=== PATIENT | female | born 1945 | race Caucasian/White ===

== ENCOUNTER 2025-09-04 09:35 | Outpatient (REF) | payer MEDICARE, SELFPAY ==
[2025-09-04 14:11] LABS: MANUAL DIFF FLAG NO
[2025-09-04 14:15] LABS: Hematocrit 41.5 % (37.0-47.0); Hemoglobin 12.9 g/dl (12.0-16.0); Imm Gran Abs Auto 0.03 X10*3/uL (0.00-0.03); Imm Gran Pct Auto 0.4 % (0.0-0.4); Lymphocytes Absolute Auto 1.8 X10*3/uL (1.2-4.9); Mean Corpuscular HGB Conc 31.1 g/dl (31.0-35.0); Mean Corpuscular Hemoglobin 27.4 pg (27.0-33.0); Mean Corpuscular Volume 88.3 fL (80.0-98.0); NRBC Abs Auto 0.000 X10*3/uL (0.0-0.012); NRBC Pct Auto 0.0 /100WBC (0.0-0.2); Platelet Count 261 X10*3/uL (160-400); Red Blood Count 4.70 X10*6/uL (4.20-5.50); White Blood Count 6.9 X10*3/uL (4.8-10.8)
== END 2025-09-04 09:36 | disposition home or self-care (01) ==
LOC: HO.WFDLDS 09:35
PROVIDERS: PCP Internal Medicine; Visit Provider Internal Medicine
DX: R35.89 Other polyuria (principal); E78.5 Hyperlipidemia, unspecified; Z13.0 Encounter for screening for diseases of the blood and blood-forming organs and certain disorders involving the immune mechanism; Z76.89 Persons encountering health services in other specified circumstances; Z13.1 Encounter for screening for diabetes mellitus; Z85.3 Personal history of malignant neoplasm of breast
CPT/HCPCS: 36415; 83036; 84443; 85025; 96127; 99202

== ENCOUNTER 2025-09-04 09:35 | Outpatient (AMB) | payer MEDICARE, SELFPAY ==
--- NOTE | 2025-09-04 09:37 | MHC.PC.OV ---
Vital Signs 09/04/25 09:41 Height 5 ft 4.5 in Weight 188 lb 8 oz BMI 31.9 BP 122/60 Blood Pressure Location Rt brachial Position Sitting Respiration 14 Pulse 71 Pulse Source Pulse Oximeter Temp 97.6 F Temp Source Oral Pulse Oximetry (%) 96 Oxygen Delivery Method Room Air Intake Visit Reasons: CPE Intake Note: New patient visit Addictions Counselor Assistant Required: No Medication List - Last Reconciled 09/04/25 by Renata Brand MD amlodipine 2.5 mg PO DAILY anastrozole 1 mg PO DAILY atorvastatin 10 mg PO DAILY brinzolamide 1% 1 drp ophthalmic-Right BID cholecalciferol (vitamin D3) (Vitamin D3) 25 mcg PO DAILY clotrimazole 1% appl topical BID fenofibrate micronized 134 mg PO QAM timolol maleate 0.5% 1 drp ophthalmic (eye) BID valsartan 40 mg PO DAILY Tobacco use date assessed: 09/04/25 Fall risk assessment: No Falls in past year Last assessed Fall Risk: 09/04/25 Dental Screening Dental Screen Date: 09/04/25 Did you have a dental visit in the last 12 months?: Yes Did you have a dental problem in the last 6 months where you did not have access to dental care?: No Was dental information given to patient?: Patient has dentist HPI HPI Comments History of Present Illness Details 79 year old female with a past medical history of breast cancer, htn, hld, presenting to establish care & for CPE CV-on amlodipine, valsartan, atorvastatin, fenofibrate. Blood pressure is well controlled Breast cancer-follows with Dr Francisco. Dr Booker. Treated 06/2022-12/2023 MSK: trigger finger Labs 06/2025. Normal CMP. Tchol 161 LDL 87 Follows with ophtho[facility] and [facility]. 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 HEENT: Denies changes in vision and hearing. RESPIRATORY: Denies SOB and cough. CV: Denies palpitations and CP GI: Denies abdominal pain, nausea, vomiting and diarrhea. : Denies dysuria and urinary frequency. MSK: Denies new myalgia and joint pain. SKIN: Denies rash and pruritus. NEUROLOGICAL: Denies headache PSYCHIATRIC: Denies recent changes in mood. PHYSICAL EXAM: GENERAL: Alert and oriented x 3. NAD EYES: EOMI. Anicteric. HENT: Moist mucous membranes. No scleral icterus. No cervical lymphadenopathy. LUNGS: Clear to auscultation bilaterally. CARDIOVASCULAR: Regular rate and rhythm. No murmur. No JVD. ABDOMEN: Soft, non-tender +bs EXTREMITIES: No edema. Non-tender. SKIN: No rashes or lesions. Warm. NEUROLOGIC: No focal neurological deficits. CN II-XII grossly intact PSYCHIATRIC: Cooperative. Appropriate mood and affect [facility] Social History Housing: House Patient Tobacco Use Status: Former Tobacco user Cigarette Packs Per Day: 0.5 Years Smoked: 20 e-Cigarette/Vaping Use: Never Used Second Hand Smoke Exposure: No service: No Current occupational status: retired Cognitive needs: No Hearing needs: Yes (hearing aids) Vision needs: Yes (glasses) Questionnaire PHQ-9 Over the last 2 weeks, how often have you been bothered by any of the following problems? 1. Little interest or pleasure in doing things: not at all 2. Feeling down, depressed, or hopeless: not at all 3. Trouble falling or staying asleep, or sleeping too much: not at all 4. Feeling tired or having little energy: not at all 5. Poor appetite or overeating: not at all 6. Feeling bad about yourself - or that you are a failure or have let yourself or your family down: not at all 7. Trouble concentrating on things, such as reading the newspaper or watching television: not at all 8. Moving or speaking so slowly that other people could have noticed. Or the opposite - being so fidgety or restless that you have been moving around a lot more than usual: not at all 9. Thoughts that you would be better off or of hurting yourself in some way: not at all Total score: 0 Source: Developed by Drs. Jorgito Jimenez, Nida Larkin, Mane Rey and colleagues, with an educational leonel from [employer]. Thrive Questionnaire Date Thrive assessed: 09/01/25 I am a: Patient What is your living situation today?: I have a steady place to live Within the past 12 months, did the food you bought not last and you didn't have the money to get more?: Never true Within the past 12 months, did you worry whether your food would run out before you got money to buy more?: Never true Do you have trouble paying for medicines?: No Do you have trouble getting transportation to medical appointments?: No Do you have trouble paying your heating and electricity bill?: No Do you have trouble taking care of your child, family member or friend?: No Do you have trouble with day-to-day activities such as bathing, preparing meals, shopping, managing finances, etc.?: No Are you currently unemployed and looking for a job?: No Are you interested in more education?: No Please select the resources that you would like help with: None Currently or been in a relationship where the following occur: No concerns reported THRIVE Score: 0 AUDIT C Alcohol Use Questionnaire (AUDIT-C) 1. How often do you have a drink containing alcohol?: Monthly or less 2. How many drinks containing alcohol do you have on a typical day when you are drinking?: 1 or 2 3. How often do you have six or more drinks on one occasion?: Never Total Score: 1 ROLAN-7 AMB Questionnaire ROLAN-7 Feeling nervous, anxious, or on edge: 0 = Not at all Not being able to stop or control worryin = Not at all Worrying too much about different things: 0 = Not at all Trouble relaxin = Not at all Being so restless that it is hard to sit still: 0 = Not at all Becoming easily annoyed or irritable: 0 = Not at all Feeling afraid as if something awful might happen: 0 = Not at all Total ROLAN-7 score (0-4 normal; 5-9 mild; 10-14 moderate; 15-21 severe): 0 Source: Developed by Drs. Jorgito Jimenez, Nida Larkin, Mane Rey and colleagues, with an educational leonel from [employer]. Physical exam (Primary Care) Vital Signs: Last Vital Signs Temp 97.6 F 09/04/25 09:41 Pulse 71 09/04/25 09:41 Resp 14 09/04/25 09:41 BP 122/60 09/04/25 09:41 Pulse Ox 96 09/04/25 09:41 Oxygen Delivery Method Room Air 09/04/25 09:41 BMI result Body Mass Index 31.9 Tobacco/Smoking Status: Tobacco use Status Tobacco use date assessed 09/04/25 09/04/25 09:43 Patient Tobacco Use Status Former Tobacco user 09/04/25 09:43 e-Cigarette/Vaping Use Never Used 09/04/25 09:43 PHQ-9: PHQ-9 Score PHQ-9: Total score 0 09/04/25 10:13 Thrive Assessment: Date of Thrive Assessment Date Thrive assessed 09/01/25 09/04/25 09:38 Currently or been in a relationship where the following occur: No concerns reported Coding Level of Care Code New Pt Level 4 (22913) Complex EM visit Add On G2211 Diagnoses Establishing care with new doctor, encounter for Z76.89 Malignant neoplasm of female breast, unspecified estrogen receptor status, unspecified laterality, unspecified site of breast C50.919 Breast location: unspecified site of breast Estrogen receptor status: unspecified Patient sex: female Laterality: unspecified laterality Hyperlipidemia, unspecified hyperlipidemia type E78.5 Hyperlipidemia type: unspecified Assessment & Plan Assessment & Plan (1) Establishing care with new doctor, encounter for: Code(s): Z76.89 - Persons encountering health services in other specified circumstances (2) Breast cancer: Code(s): C50.919 - Malignant neoplasm of unspecified site of unspecified female breast Category: Medical Qualifiers: Breast location: unspecified site of breast Estrogen receptor status: unspecified Patient sex: female Laterality: unspecified laterality Qualified Code(s): C50.919 - Malignant neoplasm of unspecified site of unspecified female breast (3) Hyperlipidemia: Code(s): E78.5 - Hyperlipidemia, unspecified Category: Medical Qualifiers: Hyperlipidemia type: unspecified Qualified Code(s): E78.5 - Hyperlipidemia, unspecified Plan 79 year old female presenting to establish care Past medical, surgical,social reviewed htn stable Labs ordered Refills sent Orders: Orders TSH reflex Free T4 09/04/25 R35.89 - Other polyuria, Z13.0 - Encounter for screening for diseases of the blood and blood-forming organs and certain disorders involving the immune mechanism Hemoglobin A1c 09/04/25 R35.89 - Other polyuria, Z13.0 - Encounter for screening for diseases of the blood and blood-forming organs and certain disorders involving the immune mechanism Complete Blood Count Auto Diff 09/04/25 R35.89 - Other polyuria, Z13.0 - Encounter for screening for diseases of the blood and blood-forming organs and certain disorders involving the immune mechanism Medications: New timolol maleate 0.5% 1 drp ophthalmic (eye) BID 15 mL 3RF amlodipine 2.5 mg PO DAILY 90 tabs 3RF clotrimazole 1% 1 appl topical BID 90 grams 3RF
[2025-09-04 09:41] VITALS: BP 122/60; PULSE 71; RESP 14; TEMP 36.4; O2SAT 96; BMI 31.9
--- OUTSIDE RECORDS SUMMARY | 2025-09-04 10:58 | XMS_ITS ---
Author Name [facility] Organization Unknown Care Team Organization Name Specialty Phone Email Start Date End Da te [facility] Termed, PROVIDER Primary Care 09/05/202205/29
--- OUTSIDE RECORDS SUMMARY | 2025-09-04 10:58 | XMS_ITS | Encounter Summary ---
Author Organization [facility] Address [address] [place] [address] Care Team Providers Care Power Plant Operator Name Role Phone Seun Esparza DO Primary Care Provider [phone] Encounter Details Date Type Department Care Team Description 10/12/[address] [facility] On[facility] [address] [place] [address] [facility] Social History Tobacco Use Types Packs/Day Years Used Date Smoking Tobacco: Former Cigarettes 20 Smokeless Tobacco: Never Alcohol Use Standard Drinks/Week Comments Not Currently 0 (1 standard drink = 0.6 oz pur e alcohol) 5-6 drinks/year Sex and Gender Information Value Date Recorded Sex Assigned at Female 07/11/2022 4:08 PM EDT Gender Identity Not on file Sexual Orientation Not on file Job Start Date Occupation Industry Not on file Not on file Not on file COVID-19 Exposure Response Date Recorded In the last 10 days, have yo u been in contact with someone who was confirmed or suspected to have Coronavirus/COVID-19? No / Unsure 10/12/2022 10:20 AM EST documented as of this encounter Plan of Treatment Not on file documented as of this encounter Visit Diagnoses Not on filedocumented in this encounter Care Teams Power Plant Operator Relationship Specialty Start Date End Date Seun Esparza DO [address] [place] [id number] PCP - General Family Medicine 07/12/22 documented as of this encounter
--- OUTSIDE RECORDS SUMMARY | 2025-09-04 10:58 | XMS_ITS | Clinical Summary ---
Author Organization [facility] Address [address] [address] Phone Care Team Providers Care Lacemaker Name Role Phone Pcp, Unknown Primary Care Provider Unavailabl e Social History Tobacco Use Types Packs/Day Years Used Date Smoking Tobacco: Never Assessed Education Answer Date Recorded Are you interested in more education? Not on celine e 09/13/2023 Are you concerned about learning? Not on file 09/13/2023 No 09/13/2023 No 09/13/2023 Digital Access Answer Date Recorded No 09/13/2023 No 09/13/2023 Reliable internet access at home? Not on file 09/13/2023 Device with a working camera? Not on file Comments Unknown Sex and Gender Information Value Date Recorded Sex Assigned at Not on file Legal Sex Female 12:52 PM EST Gender Identity Not on file Sexual Orientation Not on file Plan of Treatment Health Maintenance Due Date Last Done Comments Adult Td,Tdap Booster 1944 LIPID PANEL 1944 DEPRESSION SCREENING 1956 SMOKING Hx and SMOKELESS TOB ACCO SCREENING 1957 PNEUMOCOCCAL VACCINES (50+ y ears) (1 of 1 - PCV) 1994 ZOSTER VACCINES (1 of 2) 1994 OSTEOPOROSIS SCREENING INITI AL (ONE-TIME) 2009 RSV VACCINE (1 - 1-dose 75+ series) 2019 INFLUENZA VACCINE (#1) 2025 COVID-19 VACCINE ( - 2024-2 6 season) 2025 HEPATITIS A VACCINES Aged Out No long er eligible based on patient's age to complete this topic HIB VACCINES Aged Out No longer eligi ble based on patient's age to complete this topic MENINGOCOCCAL VACCINES (ACWY) Aged Out No longer eligible based on patient's age to complete this topic MENINGOCOCCAL VACCINES (B) Aged Out N o longer eligible based on patient's age to complete this topic Medical Devices Not on file Insurance [employer] P[employer] BLUE REPLACEMENT [employer] P[employer] BLUE REPLACEMENT [employer] PPO BLUE REPLACEMENT [employer] BLUE REPLACEMENT [employer] BLUE REPLACEMENT Care Teams Lacemaker Relationship Specialty Start Date End Date Pcp, Unknown PCP - General 09/13/23 Additional Source Comments The information contained in this document represents components of the legal health record. It is not the complete legal health record.[facility]
--- OUTSIDE RECORDS SUMMARY | 2025-09-04 10:58 | XMS_ITS | Data Portability ---
Author Organization [place] - [facility], Allergy Address [address] [address] Care Team Providers Care Scientific Recruiter Name Role Phone ROSALEE SMITH Primary Care Provider [phone] Assessment Encounter Date Assessment Date Assessment LastModified by Organization Details LastModified Time 03/19/2024 03/19/2024 Audiogram shows essentially stable hearing, slight decline at 4 kHz, bilaterally, which was programmed into the hearing aids today. Poor audibility most likely a result of the cerushields that were occluded with wax; significant improvement after replacing them with new. Reviewed general care of hearing aids. Follow up as needed. [email or web address] Not available 03/19/2024 12:08:12 04/10/2024 04/10/2024 Recurrent Cerumen Impactions: Ears were meticulously cleaned bilaterally today with a curette and suction. The patient tolerated this well and will follow up for repeat debridement per routine. [email or web address] Not available 04/10/2024 09:05:39 12/29/2024 12/29/2024 Hearing devices were found to be generally free of debris. A listening test revealed that the devices were found to be in working order. The microphones were functioning without any noise or artifact. The sound bores were not occluded at this time. Patient's hearing is essentially stable. Given report that the patient is straining to hear, we increased overall gain by 1 click in both devices. Patient reported that speech is audible and comfortably loud. The output of the devices have been analyzed and fine-tuned using the [employer]ell[employer]an Gnarus Systemsit hearing aid analyzer at a previous visit. Reviewed with patient the importance of annual appointments to ensure that the devices are working to their best potential and to rule out any changes in hearing or need to reprogram the devices. Urgent visits can always be requested or the patient can also utilize our drop-off repair program. Recommend following up in one year for their annual hearing aid fitting, sooner if any problems arise. [email or web address] Not available 12/29/2024 14:46:13 Plan of Treatment Reminders Order Date Submit Date Provider Last Modified By Organization Details Last Modified Time Details Appointments Establish ed 30 2024 10:00A M PRATIK Hanson MD Not available Not available Not available Lab None recorded. Referral None recorded. Procedures None recorded. Surgeries None recorded. Imaging None recorded. Medication Orders clotrimaz ole-betam ethasone 1 %-0.05 % topical cream 2023 024 [facility] #[id number], [address] [place], [address], 04/10/2024 09:16:03 Patient TargetsNo targets recorded. Patient InstructionsNo instructions recorded. Reason for Referral None Reported. Results Created Date Observation Date Name Description Value Unit Range Abnormal Flag Note LastModifiedBy Organization Detail LastModifiedTime 06/18/20 24 01/12/2023 audio gram No observ ation record ed. Not Available 12/29 11:53:52 06/18/20 24 03/19/2024 audio gram No observ ation record ed. [email or web address] Not Available 12/29 11:53:40 12/31/19 25 audio gram No observ ation record ed. [email or web address] Not Available 2024 11:21:21 Result Notes None recorded. Problems Name Problem SNOMED Code Status Onset Date Resolution Date Notes Provider Name and Address Organization Details Recorded Time Impacted cerumen of bilateral ears 31274095734 53586 Active 2021 Impacted cerumen, bilateral ; Note: Date Diagnosed : 06/23/2022 9:52 AM (H61.23) Not Available [facility] 03:24:51 Acute eczematoi d otitis externa 87403326 Active 2021 Acute eczematoi d otitis externa, bilateral ; Note: Date Diagnosed : 06/23/2022 10:01 AM (H60.543) Not Available [facility] 4 03:24:51 Sensorine ural hearing loss of bilateral ears 459870954 Active 2022 Sensorine ural hearing loss, bilateral ; Note: Date Diagnosed : 01/12/2023 3:03 PM (H90.3) Not Available [facility] 4 03:24:51 Impacted cerumen in right ear 84899558643 83829 Active 2023 Deanne tavarez [place] - [facility] 4 09:03:18 Impacted cerumen in left ear 47752098197 91220 Active 2023 Deanne tavarez [place] - [facility] 4 09:03:18 Chronic eczema of external auditory canal 954802893 Active 2023 PRATIK CORDOBA MD [address] [facility],[place] [address], [place], [address] , [facility] - [facility] 4 09:06:18 Candidal otitis externa 54788726 Active 2023 PRATIK CORDOBA MD [address] [facility],[place] [address], [place], [address] , [facility] - [facility] 4 09:06:33 Chronic mycotic otitis externa 764486264 Active 2023 PRATIK CORDOBA MD 100 [facility],[place] [address], [place], [address] , [facility] - [facility] 4 09:06:33 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 Active 2023 PRATIK CORDOBA MD 100 [facility] [address], [place], [address] , [facility] - [facility] 4 09:06:33 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 Procedures Surgical History Date Name Laterality Status Provider Name and Address Organization Details Recorded Time 5 Cerumen removal with microscope bilateral completed PRATIK CORDOBA MD 100 [facility],[address], [address], [facility] - [facility] 01/16/2025 10:44:37 5 Air & Speech Audio - 47520 & 60361 completed Srini BERNABE 100 [facility],[address], [address], [facility] - [facility] 12/29/2024 14:45:12 4 Cerumen removal with microscope bilateral completed PRATIK CORDOBA MD 100 [facility],[address], [address], [facility] - [facility] 04/10/2024 09:06:01 4 Air only Audio - 20397 completed Srini BERNABE 100 [facility],[address], [address], [facility] - [facility] 03/19/2024 12:06:53 Imaging Results None recorded. Procedure Notes None recorded. Medical Equipment None Reported. Allergies Allergen ID Allergen Name Allergen Category Reaction Reaction Severity Criticality Documentation Date Start Date Code Code System Note Provider Name and Address Organization Details Recorded Time 432709 amoxicill in medicatio n other Not available Not available 03/11/2024 723 RxNorm React ion: Unkno wn; Not Available [facility] 4 01:23:41 Medications Name Sig Start Date Stop Date Status Note LastModified by Organization Details LastModified Time anastrozo le 1 mg tablet TAKE 1 TABLET BY MOUTH EVERY DAY active Not Available Not Available No t Available prednison e 10 mg tablet PLEASE SEE ATTACHED FOR DETAILED DIRECTIO NS active Not Available Not Available No t Available atorvasta tin 10 mg tablet TAKE 1 TABLET BY MOUTH EVERY DAY active Not Available Not Available No t Available fluconazo le 150 mg tablet TAKE ONE TABLET ONCE WEEKLY X4 WEEKS. MAY REPEAT REGIMEN IF SYMPTOMS RETURN. 04/10 completed Not Available Not Available Not Available clotrimaz ole-betam ethasone 1 %-0.05 % lotion Apply a small amount three times a day as directed 04/10 completed Medicati on ID: [id number] D uration Value: 14 Brand Name: clotrima zole-bet amethaso ne Send Method: E-Prescr ibed Sub s Allowed: subs OK Speci al Instruct ion: Apply with finger to ear canal skin. Me dication GenericN shoaib: clotrima zole-bet amethaso ne Medic ation ID: [id number] D uration Value: 14 Brand Name: clotrima zole-bet amethaso ne Send Method: E-Prescr ibed Sub s Allowed: subs OK Speci al Instruct ion: Apply with finger to ear canal skin. Me dication GenericN shoaib: clotrima zole-bet amethaso ne Not Available Not Available Not Available brinzolam lamar 1 % eye drops,ferdinand pension INSTILL 1 DROP INTO RIGHT EYE TWICE A DAY DIRECTED active Not Available Not Available No t Available amlodipin e 2.5 mg tablet TAKE 1 TABLET BY MOUTH 1 TIME EACH DAY. active Not Available Not Available No t Available fenofibra te micronize d 134 mg capsule TAKE 1 CAPSULE (134 MG TOTAL) BY MOUTH DAILY WITH BREAKFAS T active Not Available Not Available No t Available cefadroxi l 500 mg capsule TAKE 1 CAPSULE BY MOUTH ONCE. TAKE 1 CAP BY MOUTH 30 MINUTES PRIOR TO PROCEDUR E. active Not Available Not Available No t Available amlodipin e 10 mg tablet TAKE 1 TABLET BY MOUTH EVERY DAY active Not Available Not Available No t Available clotrimaz ole-betam ethasone 1 %-0.05 % topical cream APPLY TO THE SKIN OF THE AFFECTED EXTERNAL EAR CANAL WITH FINGERTI P 3 TIMES PER DAY FOR 2 WEEKS active Not Available Not Available No t Available losartan 25 mg tablet TAKE 1 TABLET BY MOUTH EVERY DAY active Not Available Not Available No t Available lisinopri l 30 mg tablet TAKE 1 TABLET BY MOUTH EVERY DAY active Not Available Not Available No t Available vitamin B complex tablet 1 tablet every day by oral route. 2023 active Not Available Not Available Not Avai lable lisinopri l 5 mg tablet TAKE 1 TABLET BY MOUTH DAILY. IN ADDITION TO 30 MG active Not Available Not Available No t Available gabapenti n 100 mg capsule TAKE 1 CAPSULE BY MOUTH EVERY DAY 12/23 completed Not Available Not Available Not Available methylpre dnisolone 4 mg tablets in a dose pack TAKE 6 TABLETS ON DAY 1 DIRECTED ON PACKAGE AND DECREASE BY 1 TAB EACH DAY FOR A TOTAL OF 6 DAYS 04/10 completed Not Available Not Available Not Available timolol maleate 0.5 % eye drops INSTILL 1 DROP INTO BOTH EYES TWICE A DAY DIRECTED active Not Available Not Available No t Available clotrimaz ole 1 % topical cream APPLY TO AFFECTED AREA TWICE A DAY active Not Available Not Available No t Available valsartan 40 mg tablet TAKE 1 TABLET BY MOUTH 1 TIME EACH DAY. active Not Available Not Available No t Available Vitamin D3 25 mcg (1,000 unit) tablet TAKE 1 TABLET (1,000 UNITS TOTAL) BY MOUTH DAILY active Not Available Not Available No t Available amlodipin e besylate (bulk) 100 % powder 2024 active Not Available Not Available Not Avai lable Vitamin D3 125 mcg (5,000 unit) tablet 2014 active Not Available Not Available Not Avai lable Vitals Date Recorded Body height Body mass index (BMI) Body weight Provider Name and Address Organization Details Last Updated DateTime 01/16/2025 163.83 cm 28.7 kg/m2 71274.7 g Ciarra Patricia [place] - [facility] 01/16/2025 10:05:49 Date Recorded Body height Body mass index (BMI) Body weight Provider Name and Address Organization Details Last Updated DateTime 04/10/2024 163.83 cm 28.7 kg/m2 99016.7 g Deanne Blandon [facility] 04/10/2024 09:04:05 Social History None recorded. Functional Status None recorded. Mental Status None recorded. Family History Nothing Reported. Medical History Condition Response Tonsil Infections N Emphysema N Glaucoma Y Depression N COPD N Nasal or Sinus Problems N Anesthesia Complications N Arthritis Y Hearing Loss Y Cancer Y Stroke N High Cholesterol Y Liver Disease N Headaches Y Fibromyalgia N Speech Delay N Kidney Disease N Allergies/Hayfever Y Heart Problems N Anxiety N Migraines N Thyroid Problems N Developmental Delay N Anemia N Immune System Disorder N Heart Attack ([place]) N Other Skin Condition N Diabetes N Rhinitis N Bleeding Disorder N Food Allergy N Hyperlipidemia N Dementia N Nasal polyps N Asthma N Sleep Disorder N GERD/Reflux N Hypertension N Gynecological HistoryNo gynecological history recorded. Obstetrics History GPAL:G 0 P 0 0 0 0 Past Encounters Encounter ID Performer Location Encounter Start Date Encounter Closed Date Diagnosis/Indication Diagnosis SNOMED-CT Code Diagnosis ICD10 Code Diagnosis IMO Codes Diagnosis Note [id number] Srini BERNABE [place] 100 [facility] [address] [place] [address] 03/19/2024 11:10:48 04/18/2024 08:41:34 Sensorineural hearing loss of bilateral ears 383790482 H90.3 [id number] PRATIK CORDOBA MD [facility] on [address] [place] [address] 04/10/2024 08:57:37 04/10/2024 09:23:40 Impacted cerumen of bilateral ears 1479286363 040042 H61.23 Chronic ec zema of external auditory canal 993157441 H60.8X9 Benign pos itional paroxysmal vertigo posterior canal 1383470198 H81.11 Keesha performed. I asked her to call if not improved and I will send for vestibular therapy [id number] Srini BERNABE [place] [address] [place], [place] [address] [address] [place] [address] 12/29/2024 13:48:23 12/30/2024 08:24:11 Sensorineural hearing loss of bilateral ears 742485932 H90.3 [id number] PRATIK CORDOBA MD [facility] on [address] [place] [address] 01/16/2025 09:46:12 01/16/2025 10:44:55 Impacted cerumen of bilateral ears 4252276306 477834 H61.23 Recurrent Cerumen Impactions : Ears were meticulous ly cleaned bilaterall y today with fine pics and suction. Patient is encouraged to avoid Q-tips in his ears relative to packing the wax in tighter. Yearly visits or as needed are recommende d. Diffuse ot itis externa 07712877 H60.313 No infection on exam today. She uses clotrimazo le as needed for itching. Health Concerns Section Related Observation LastModified by Organization Detai ls LastModified Time None Recorded Concern Status LastModified by Organization Details LastModified Time None Recorded Advance Directives Directive None Recorded Payers Insurance Date Sequence Insurance Name Policy Number Policy Hensley Covered Member ID Hensley Member ID Guarantor Name 01/16/2025 1 [facility]IC[place] P[place] BLUE (MEDICARE REPLACEMENT PPO) [id number] Felicita M Janina [id number] Felicita Roa Notes Date Note Type Note Provider Name and Address Organization Details Recorded Time 03/19/2024 text/html Here for annual visit, not hearing well, especially out of the right ear. LOUIS KELLEY, Srini 100 [facility],[place] [address], [place], [address], [place] - [facility] 03/19/2024 12:08:41 04/10/2024 text/html The patient presents for cerumen impaction. The patient denies other ear problems. PRATIK CORDOBA MD 100 [facility],[place] [address], [place], [address], [place] - [facility] 04/10/2024 09:16:01 12/29/2024 text/html Hearing Technolo gy HistoryReported by PatientReported status of current hearing technologyFor sound quality and programming settings, patient reportsthat they are satisfied with current settings and technology. For daily use, patient reportsconsistent use of technology. For communication and hearing challenges, patient reportshearing in noisy environments. For reported condition, patient reportsin working condition. Patient returned for their annual fitting of amplification to discuss their ongoing communication needs and progress with amplification. They reported a change in their hearing ability. They are struggling understanding someone within 3-4 feet in noise. They are not sure if they are inserting them properly. They report that their devices are in working order without defects. The devices are in warranty at this time. LOUIS KELLEY, Srini [address] [facility],[place] [address], [place], [address], [place] - [facility] 12/29/2024 14:47:12 01/16/2025 text/html The patient presents for cerumen impaction. The patient denies other ear problems. She has a history of recurrent otitis externa however she has had no recent trouble. She uses clotrimazole as needed. PRATIK CORDOBA MD [address] [place] [address], [address], [facility] - [facility] 01/16/2025 10:45:49 OBGyn Episode No OBEpisode recorded.
--- OUTSIDE RECORDS SUMMARY | 2025-09-04 10:58 | XMS_ITS | Clinical Summary ---
Author Organization [address] Address [address] [place] [address] Phone Care Team Providers Care Digital Media Designer Name Role Phone Renata Brand MD Primary Care Provider [phone] Allergies Active Allergy Reactions Criticality Noted Date Comments Amoxicillin 06/28/2022 Dizzy/ headache Fznsvtz-Uug-Axw Reductase Inhibitors 03/19/2014 Multiple side effects palpitations with simvistatin Medications brinzolamide (AZOPT) 1 % ophthalmic suspension INSTILL 1 DROP INTO RIGHT EYE TWICE A DAY DIRECTED 1 Active fluticasone propionate (FLONASE) 50 mcg/actuation nasal spray Apply 2 sprays into each nostril once daily 6 Active timolol (TIMOPTIC) 0.5 % ophthalmic solution 1 drop. Active cholecalciferol (VITAMIN D-3) 25 mcg (1,000 unit) tablet Take 1 tablet (1,000 Units total) by mouth 1 (one) time each day. 30 each 11 4 10/07/20 25 Active anastrozole (ARIMIDEX) 1 mg TAKE 1 TABLET BY MOUTH EVERY DAY 90 tablet 3 5 Active amLODIPine (NORVASC) 2.5 mg tablet Take 1 tablet (2.5 mg total) by mouth 1 (one) time each day. 90 each 1 5 Active clotrimazole (LOTRIMIN) 1 % cream Apply topically 2 (two) times a day. 30 g 5 Active atorvastatin (LIPITOR) 10 mg tablet Take 1 tablet (10 mg total) by mouth 1 (one) time each day. 90 each 1 5 Active valsartan (DIOVAN) 40 mg tablet TAKE 1 TABLET BY MOUTH 1 TIME EACH DAY. 90 tablet 1 5 Active fenofibrate micronized (LOFIBRA) 134 mg capsuleIndicatio ns:Pure hypercholesterol emia, unspecified TAKE 1 CAPSULE (134 MG TOTAL) BY MOUTH DAILY WITH BREAKFAST 90 capsule 5 Active Active Problems Problem Noted Date Diagnosed Date Renal mass 12/08/2024 Overview (12/08/2024): S/p cryoablation. We do not have records. They have been requested. Assessment & Plan (12/08/2024 2:08 PM EST): History of a exophytic right renal mass. Status post cryoablation. Records have been requested from urology. The imaging study was suspicious for renal cell carcinoma. Encounter for monitoring anastrozole therapy 07/2024 Primary hypertension 04/02/2023 Assessment & Plan (12/08/2024 2:08 PM EST): Her blood pressure is well-controlled in the office today. At home her systolic blood pressure seems to average in the 130s. No change to regimen today. She will continue on amlodipine and valsartan. Will follow renal function. Assessment & Plan (10/28/2024 12:16 PM EST): Her blood pressure is doing better with the addition of amlodipine. While it is somewhat elevated today, her home blood pressure readings are looking much better, and she had a particularly stressful morning because her neighbor last night. For now follow-up in 3 months is recommended. Invasive ductal carcinoma of breast, female, right (CMS/HCC V24, CMS/HCC V28) 09/28/2022 Glaucoma 10/03/2020 Vitamin D insufficiency 03/19/2014 Assessment & Plan (12/08/2024 2:08 PM EST): Vitamin D previously diminished. Patient is on vitamin D supplementation. Orders placed to follow labs. Orders: Thyroid stimulating hormone; Future Vitamin D 25 hydroxy; Future Comprehensive metabolic panel; Future Assessment & Plan (10/28/2024 12:16 PM EST): Recently had her vitamin D increase by her oncologist. Osteoporosis 12/26/2011 Overview (01/04/2024): On Fosamax in the past. BMD improved/normalized on meds 09/07/09; osteopenia 07/10; follow; T score -1.4; osteopenia 11/14 Tscore -1.6 hip, -0.6 in the spine; improved Osteopenia 07/19- T score hip -1.4, spine -.3 3.6% frax of hip Hyperlipidemia 02/14/2011 Overview (01/04/2024): Inc TG, inc LDL Assessment & Plan (12/08/2024 2:08 PM EST): Patient with previous history of hyperlipidemia. She is maintained on atorvastatin 10 mg. Will follow LFTs. Orders: Thyroid stimulating hormone; Future Vitamin D 25 hydroxy; Future Comprehensive metabolic panel; Future Overweight 02/14/2011 Resolved Problems Problem Noted Date Diagnosed Date Resolved Date Use of anastrozole 10/07/2024 4 Encounters Date Type Department Care Team Description 08/21/2025 9:00 AM EDT Office Visit [facility] Hematology Oncology [address] [place] [address] Alondra Booker DO Invasive ductal carcinoma of breast, female, right (CMS/HCC V24, CMS/HCC V28) (Primary Dx); Encounter for screening mammogram for malignant neoplasm of breast; Encounter for monitoring anastrozole therapy; Osteopenia after menopause from Last 3 Months Immunizations Immunization Administration Dates Next Due Influenza trivalent, 0.5mL ( Fluad) 65yo and older 08/04/2025 Pfizer SARS-CoV-2 COVID-19, mRNA, LNP-S, preservative free 07/27/2023,12/24/2020,12/02/2020 Pneumococcal conjugate 13 va lent (Prevnar 13, PCV13) 2mo and older 06/28/2015 Pneumococcal polysaccharide 23 valent (Pneumovax 23) 2yo and older 12/16/2009 RSV, bivalent, protein subun it RSVpreF, 0.5mL, Preservative Free (Arexvy) 50yo and older 07/27/2023 Zoster recombinant (Shingrix ) 19yo and older 05/18/2020,01/11/2020 Surgical History Surgery Date Site/Laterality Comments VITRECTOMY PROCEDURE:VITRECTOMY VARICOSE VEIN SURGERY PROCEDURE:VARICOSE VEIN SURGERY STEREOTACTIC CORE BIOPSY BREAST LUMPECTOMY Right 2 YRS OUT RT BREAST CA-LUMPECTOMY W RADIATION & CHEMO Medical History Medical History Date Comments Osteoporosis DX:Osteoporosis Breast cancer ([facility] V24, [facility] V28) DX:Breast cancer ([facility]) Family History Medical History Relation Name Comments Heart attack Father Coronary artery disease Mother Relation Name Status Comments Father Mother Social History Tobacco Use Types Packs/Day Years Used Date Smoking Tobacco: Former Smokeless Tobacco: Never Alcohol Use Standard Drinks/Week Comments Not Currently 0 (1 standard drink = 0.6 oz pur e alcohol) Housing Instability Answer Date Recorde d Are you worried that in the next 2 months you may not have stable housing? No 09/04/2024 Food Access & Nutrition Answer Date Rec orded Do you have access to a vari ety of food including fruits and vegetables? Yes 09/04/2024 Access to Healthcare Answer Date Record ed Within the last 3 months, ho w many times did you visit the emergency department for your medical care? 0 09/04/2024 Health Literacy Answer Date Recorded How often do you need to hav e someone help you when you read instructions, pamphlets, or other written material from your doctor or pharmacy? Never 09/04/2024 Caregiver: How often do you need to have someone help you when you read instructions, pamphlets, or other written material from your doctor or pharmacy? Not on file 09/04/2024 Transportation Answer Date Recorded Has the lack of transportati on kept you from meetings, work, or from getting things needed for daily living? No Has the lack of transportati on kept you from medical appointments or from getting medications? No 09/04/2024 Social Isolation Answer Date Recorded How often do you feel lonely or isolated from th ose around you? Never 09/04/2024 Food Risk Answer Date Recorded Within the past 12 months we worried whether our food would run out before we got money to buy more. Never true 09/04/2024 Within the past 12 months th e food we bought just didn't last and we didn't have money to get more. Never true 09/04/2024 Dependent Care Answer Date Recorded Do you need help finding or paying for care for your loved ones. For example, children's court magistrate or elderly care for an older adult? No 09/04/2024 Education Answer Date Recorded Do you think completing more education or training, like finishing a GED, going to college, or learning a trade, would be helpful for you? No 09/04/2024 Employment and Income Answer Date Recor ded During the last four weeks, have you been actively looking for work? No 09/04/2024 Living Situation Answer Date Recorded What is your living situation? Unrecognized valu e 09/04/2024 Comments No Sex and Gender Information Value Date Recorded Sex Assigned at Female 09/02/2024 9:37 AM EST Legal Sex Female 11:03 PM EST Gender Identity Female 09/02/2024 9:37 AM EST Sexual Orientation Straight 09/02/2024 9: 37 AM EST Obstetrics History Para Term AB IAB SAB Ectopic Multiple Livin g Live Births 1 1 1 1 Date Outcome GA Total Labor Labor/2nd/3rd Weight Sex Type Anes PTL Sola A1 A5 Name Clin Term Last Filed Vital Signs Vital Sign Reading Time Taken Comments Blood Pressure 170/79 08/21/2025 9:06 AM EDT Pulse 78 08/21/2025 9:06 AM EDT Temperature 36.6 C (97.9 F) 08/21/2025 9:06 AM EDT Respiratory Rate 16 04/07/2025 11:00 AM EDT Oxygen Saturation 92% 08/21/2025 9:06 AM EDT Inhaled Oxygen Concentration - - Weight 86.2 kg (190 lb) 08/21/2025 9:06 AM EDT Height 163.8 cm (5' 4.5 ) 08/21/2025 9:06 AM EDT Body Mass Index 32.11 08/21/2025 9:06 AM EDT Plan of Treatment Upcoming Encounters Date Type Department Care Team (Late st Contact Info) Description 10/06/2025 10:45 AM EST [facility]ointment [facility] [address] [phone] 10/07/2025 9:45 AM EST Office Visit Adult Medicine [facility] [address] [place] [phone] Jane Treadwell MD [address] [place] [address] 11/10/2025 9:15 AM EST Office Visit General [facility] - [place] [address] [facility] [address] [place] [phone] Renata Josue MD [address] [place] [phone] 02/19/2026 9:00 AM EDT Office Visit [facility] Hematology Oncology [address] [place] [phone] Alondra Booker DO [address] [place] [address] Health Maintenance Due Date Last Done Comments Medicare Annual Wellness Visit 10/07/2022 Social Influencers of Health Screening 09/04/2025 09/04/2024 Falls Risk Assessment 12/08/2025 12/08/2024 , 12/02/2024, 10/28/2024 COVID-19 Vaccine (9 - Pfizer risk season) 2026 08/04/2025, 07/31/2024, 07/27/2023, Additional history exists Hypertension/CHF/CAD Annual BMP Blood Test 07/16/2026 07/16/2025, 09/30/2024, 05/05/2024, Additional history exists Cholesterol Screening (Lipid Panel) 07/16/2030 07/16/2025, 08/13/2024, 07/28/2024, Additional history exists DTaP,Tdap,and Td Vaccines (3 - Td or Tdap) 09/28/2032 09/28/2022, 09/11/2012, 11/07/2004 Osteoporosis Screening (Bone Density Screening) 01/22/2035 01/22/2025, 01/21/2024, 01/16/2023, Additional history exists Pneumococcal Vaccine: 50+ Years Completed 06/28/2015, 12/16/2009 Zoster Vaccines Completed 05/18/2020, 01/11/2020 RSV Immunization Adult Patients Completed 07/27/2023 Depression Screening Completed 12/01/2024 Influenza Vaccine Completed 08/04/2025, , 07/10/2023, Additional history exists HIB Vaccines Aged Out No longer eligi ble based on patient's age to complete this topic HPV Vaccines Aged Out No longer eligi ble based on patient's age to complete this topic Hepatitis A Vaccines Aged Out No long er eligible based on patient's age to complete this topic Hepatitis B Vaccines Aged Out No long er eligible based on patient's age to complete this topic IPV Vaccines Aged Out No longer eligi ble based on patient's age to complete this topic MMR Vaccines Aged Out No longer eligi ble based on patient's age to complete this topic Meningococcal ACWY Vaccine Aged Out N o longer eligible based on patient's age to complete this topic Meningococcal B Vaccine Aged Out No l onger eligible based on patient's age to complete this topic RSV Immunization Patients Under 20 months Aged Out No longer eligible based on patient's age to complete this topic Varicella Vaccines Aged Out No longer eligible based on patient's age to complete this topic Procedures Procedure Name Priority Date/Time Associated Diagnosis Comments VITAMIN D 25 HYDROXY Routine 07/16/2025 8:55 AM EDT Vitamin D insufficiency Hyperlipidemia, unspecified hyperlipidemia type COMPREHENSIVE METABOLIC PANEL Routine 07/16/2025 8:55 AM EDT Vitamin D insufficiency Hyperlipidemia, unspecified hyperlipidemia type LIPID PANEL WITH REFLEX TO DIRECT LDL Routine 07/16/2025 8:55 AM EDT Encounter for screening for cardiovascular disorders THYROID STIMULATING HORMONE WITH REFLEX TO FREE T4 AND FREE T3 Routine 07/16/2025 8:55 AM EDT Primary hypertension Pure hypercholesterolemia Invasive ductal carcinoma of breast, female, right ([facility] V24, [facility] V28) Encounter for screening for cardiovascular disorders BD BONE DENSITY DXA AXIAL SKELETON Routine 01/22/2025 11:14 AM EDT Invasive ductal carcinoma of breast, female, right ([facility] V24, [facility] V28) Encounter for monitoring anastrozole therapy Osteopenia, unspecified location from Last 3 Months or Most Recently Relevant to Health Maintenance Results * Thyroid stimulating hormone with reflex to free t4 and free t3 (07/16/2025 8:55 AM EDT) TSH 2.10 0.40 - 4.00 mcIU/mL LAB CHEMISTRY METHOD 07/16/2025 12:29 PM EDT [facility] Blood Venous blood specimen / Unknown Venipuncture / Unknown 07/16/2025 8:55 AM EDT 07/16/2025 8:55 AM EDT us Shamir Reza [employer]PER[employer] LAB BLOOD ORDERABLES Final R esult [facility] [address] [place] [address], [place] [phone] * Lipid panel with reflex to direct LDL (07/16/2025 8:55 AM EDT) Cholesterol 161 0 - 200 mg/dL LAB CHEMISTRY METHOD 07/16/2025 10:56 AM EDT [facility] Triglycerides 110 0 - 150 mg/dL LAB CHEMISTRY METHOD 07/16/2025 10:56 AM EDT [facility] HDL 52 >=40 mg/dL LAB CHEMISTRY METHOD 07/16/2025 10:56 AM EDT [facility] LDL Calculated 87 0 - 100 mg/dL LAB CHEMISTRY METHOD 07/16/2025 10:56 AM EDT [facility] Comment:Estimated LDL Calcul ated using equation: Total cholesterol - HDL cholesterol - (Triglycerides/5) VLDL Cholesterol Hasmukh 22 mg/dL LAB CHEMISTRY METHOD 07/16/2025 10:56 AM EDT [facility] Non HDL Chol. (LDL+VLDL) 109 <145 mg/dL LAB CHEMISTRY METHOD 07/16/2025 10:56 AM EDT [facility] Chol/HDL Ratio 3.1 0.0 - 4.4 LAB CHEMISTRY METHOD 07/16/2025 10:56 AM EDT [facility] Blood Venous blood specimen / Unknown Venipuncture / Unknown 07/16/2025 8:55 AM EDT 07/16/2025 8:55 AM EDT Shamir Reza [employer]CR[employer] SUPER[employer]OR LAB BLOOD ORDERABLES Final R esult Performing Organization Address City/[facility]/ZIP Co de Phone Number [facility] [address] [place] [address], [place] [phone] * Vitamin D 25 hydroxy (07/16/2025 8:55 AM EDT) Vit D, 25-Hydroxy 36.0 30.0 - 80.0 ng/mL LAB CHEMISTRY METHOD 07/16/2025 12:29 PM EDT [facility] Blood Venous blood specimen / Unknown Venipuncture / Unknown 07/16/2025 8:55 AM EDT 07/16/2025 8:55 AM EDT [facility] LAB BLOOD ORDERABLES Fin al Result Performing Organization Address City/[facility]/ZIP Co de Phone Number [facility] [address] [place] [address], [place] [phone] * (ABNORMAL) Comprehensive metabolic panel (07/16/2025 8:55 AM EDT) [facility] Signature Sodium 141 133 - 145 mmol/L LAB CHEMISTRY METHOD 07/16/2025 10:53 AM [facility] Potassium 4.5 3.5 - 5.5 mmol/L LAB CHEMISTRY METHOD 07/16/2025 10:53 AM [facility] Chloride 106 96 - 110 mmol/L LAB CHEMISTRY METHOD 07/16/2025 10:53 AM [facility] CO2 30 21 - 32 mmol/L LAB CHEMISTRY METHOD 07/16/2025 10:53 AM [facility] Anion Gap 5 3 - 11 LAB CHEMISTRY METHOD 07/16/2025 10:53 AM [facility] Glucose 109(H) 70 - 100 mg/dL LAB CHEMISTRY METHOD 07/16/2025 10:53 AM [facility] BUN 19 5 - 25 mg/dL LAB CHEMISTRY METHOD 07/16/2025 10:53 AM [facility] Creatinine 0.57 0.50 - 1.10 mg/dL LAB CHEMISTRY METHOD 07/16/2025 10:53 AM [facility] eGFR 92 >=60 mL/min/1. 73m2 LAB CHEMISTRY METHOD 07/16/2025 10:53 AM [facility] Comment:Calculation based on the Chronic Kidney Disease Epidemiology Collaboration (CKD-EPI) equation refit without adjustment for race. BUN/Creatinine Ratio 33.3 LAB CHEMISTRY METHOD 07/16/2025 10:53 AM [facility] Calcium 9.3 8.5 - 10.5 mg/dL LAB CHEMISTRY METHOD 07/16/2025 10:53 AM [facility] AST (SGOT) 11 10 - 42 unit/L LAB CHEMISTRY METHOD 07/16/2025 10:53 AM [facility] ALT (SGPT) 24 10 - 60 unit/L LAB CHEMISTRY METHOD 07/16/2025 10:53 AM EDT [facility] Alkaline Phosphatase 85 42 - 121 unit/L LAB CHEMISTRY METHOD 07/16/2025 10:53 AM EDT [facility] Total Protein 6.7 6.0 - 8.0 g/dL LAB CHEMISTRY METHOD 07/16/2025 10:53 AM EDT [facility] Albumin 4.0 3.2 - 5.0 g/dL LAB CHEMISTRY METHOD 07/16/2025 10:53 AM EDT [facility] Total Bilirubin 0.7 0.0 - 1.4 mg/dL LAB CHEMISTRY METHOD 07/16/2025 10:53 AM EDT [facility] Blood Venous blood specimen / Unknown Venipuncture / Unknown 07/16/2025 8:55 AM EDT 07/16/2025 8:55 AM EDT us [place] [facility] LAB BLOOD ORDERABLES Fin al Result [facility] [address] [place] [address], * BD Bone Density DXA Axial Skeleton (01/22/2025 11:14 AM EDT) Anatomical Region Laterality Modality Wrist, Hip, L-spine Bone Densito metry 01/22/2025 11:1 9 AM EDT Impressions 01/22/2025 11:21 AM EDT 1. Osteopenia. There has been a decrease of 0.4% in bone mineral density in the lumbar spine since the prior examination of 01/25/2023. There has been a decrease of 6.1% in bone mineral density in the right femur and no change in bone mineral density in the left femur. 2. FRAX analysis yields a 10-year probability of major osteoporotic fracture of 18.2% and a 10-year probability of hip fracture of 6.0%. Code 98597 -------- FINAL REPORT -------- Dictated By: Chace Jose Dictated Date: 01/22/2025 11:19 ET Assigned Physician: Chace Jose Reviewed and Electronically Signed By: Chace Jose Signed Date: 01/22/2025 11:21 ET Workstation ID: [id number] Transcribed By: Self Edit Transcribed Date: 01/22/2025 11:19 ET Narrative 01/22/2025 11:21 AM EDT HISTORY: The patient is an 79-year-old postmenopausal female with clinical concern for metabolic bone disease. FINDINGS: Dual energy x-ray absorptiometry of the lumbar spine and femurs is performed. The mean bone mineral density at L2-4 is 1.147 gm/cm2 which is 96% of that of young normals and 109% of that of age matched controls. This yields a T-score of -0.4 and a Z-score of 0.8 and there is therefore no evidence of osteoporosis or osteopenia here. The mean bone mineral density of the femurs bilaterally is 0.898 gm/cm2 which is 89% of that of young normals and 111% of that of age matched controls. This yields a T-score of -0.9 and a Z-score of 0.7 and there is therefore no evidence of osteoporosis or osteopenia here. However, the T-score of the right femoral neck is -2.4 and that of the left femoral neck is -2.4 which is diagnostic of osteopenia. Procedure Note Chace Jose MD - 01/22/2025 HISTORY: The patient is an 79-year-old postmenopausal female withclinical concern for metabolic bone disease. FINDINGS: Dual energy x-ray absorptiometry of the lumbar spine and femursis performed. The mean bone mineral density at L2-4 is 1.147 gm/cm2 whichis 96% of that of young normals and 109% of that of age matched controls.This yields a T-score of -0.4 and a Z-score of 0.8 and there is thereforeno evidence of osteoporosis or osteopenia here. The mean bone mineral density of the femurs bilaterally is 0.898 gm/ap0odaip is 89% of that of young normals and 111% of that of age matchedcontrols. This yields a T-score of -0.9 and a Z-score of 0.7 and there istherefore no evidence of osteoporosis or osteopenia here. However, theT-score of the right femoral neck is -2.4 and that of the left femoralneck is -2.4 which is diagnostic of osteopenia. IMPRESSION: 1. Osteopenia. There has been a decrease of 0.4% in bone mineral densityin the lumbar spine since the prior examination of 01/25/2023. There hasbeen a decrease of 6.1% in bone mineral density in the right femur and nochange in bone mineral density in the left femur. 2. FRAX analysis yields a 10-year probability of major osteoporoticfracture of 18.2% and a 10-year probability of hip fracture of 6.0%. Code 78773 -------- FINAL REPORT -------- Dictated By: Chace Jose Dictated Date: 01/22/2025 11:19 ET Assigned Physician: Chace Jose Reviewed and Electronically Signed By: Chace Jose Signed Date: 01/22/2025 11:21 ET Workstation ID: [id number] Transcribed By: Self Edit Transcribed Date: 01/22/2025 11:19 ET us Alondra Booker DO IMG DXA PROCEDURES Fi nal Result from Last 3 Months or Most Recently Relevant to Health Maintenance Insurance [employer] [place] MEDIC[place] ADVANTAGE Care Teams Digital Media Designer Relationship Specialty Start Date End Date Renata Brand MD [address] [place] [address] [address] [place] [id number] PCP - General Internal Medicine 08/21/25
--- OUTSIDE RECORDS SUMMARY | 2025-09-04 10:58 | XMS_ITS | Clinical Summary ---
Author Organization [facility] Address [address] [place] [address] Care Team Providers Care Breaker Up Machine Operator Name Role Phone Seun Esparza DO Primary Care Provider [phone] Allergies Active Allergy Reactions Criticality Noted Date Comments Amoxicillin 08/16/2022 Brimonidine 06/24/2024 Other reaction(s): ORBITAL REDNESS AND SWELLING Medications Medication Sig Dispensed Refills Start Date End Date Status clotrimazole (LOTRIMIN) 1 % cream Apply topically 2 (two) times a day. 0 Active atorvastatin (LIPITOR) tablet 10 mg Take 1 tablet (10 mg total) by mouth every evening. 0 Active fenofibrate micronized (LOFIBRA) 134 MG capsule Take 1 capsule (134 mg total) by mouth every morning before breakfast. 0 Active brinzolamide (AZOPT) 1 % ophthalmic suspension 1 drop 3 (three) times a day. 0 Active timolol (TIMOPTIC) 0.5 % ophthalmic solution 1 drop 2 (two) times a day. 0 Active Calcium 500 MG tablet Take 600 mg by mouth. 0 Active fluticasone (FLONASE) 50 MCG/ACT nasal spray spray/apply 1 spray in each nostril daily. 0 Active vitamin D3 (cholecalciferol) 25 MCG (1000 UT) tablet Take 1 tablet (25 mcg total) by mouth daily. 0 Active ondansetron (ZOFRAN) 8 MG tablet Take 1 tablet (8 mg total) by mouth every 8 (eight) hours as needed for nausea. 20 tablet 0 10/26/2022 Active lisinopril (PRINIVIL,ZESTRIL) tablet 20 mg Take 1.5 tablets (30 mg total) by mouth daily. 0 Active lidocaine-prilocaine (EMLA) cream Apply topically as needed. 30 g 0 11/15/2022 Active fluconazole (DIFLUCAN) 150 MG tablet Take 1 tablet (150 mg total) by mouth once. 0 Active anastrozole (ARIMIDEX) 1 MG tablet Take 1 tablet (1 mg total) by mouth daily 90 tablet 3 02/19/2024 Active Active Problems Problem Noted Date Diagnosed Date Malignant neoplasm of right breast in female, estrogen receptor positive 06/24/2024 Osteopenia 06/24/2024 Sensorineural hearing loss (SNHL) of both ears 0 01/12/2023 06/24/2024 Overview: Sensorineural hearing loss, bilateral; Note: Date Diagnosed: 01/12/2023 3:03 PM (H90.3) Note: Date Diagnosed: 01/12/2023 3:03 PM (H90.3) Sensorineural hearing loss, bilateral; Note: Date Diagnosed: 01/12/2023 3:03 PM (H90.3) Elevated blood-pressure read ing without diagnosis of hypertension 02/08/2022 06/24/2024 Glaucoma 10/03/2020 06/24/2024 Hyperlipidemia 02/14/2011 06/24/2024 Overview: Inc TG, inc LDL Overweight 02/14/2011 06/24/2024 Family History Medical History Relation Name Comments Heart attack Father Coronary artery disease Mother Relation Name Status Comments Father Mother Social History Tobacco Use Types Packs/Day Years Used Date Smoking Tobacco: Former Cigarettes 20 Smokeless Tobacco: Never Tobacco Cessation:Counseling Given: Not Answered Alcohol Use Standard Drinks/Week Comments Not Currently 0 (1 standard drink = 0.6 oz pur e alcohol) 5-6 drinks/year Sex and Gender Information Value Date Recorded Sex Assigned at Female 07/11/2022 4:08 PM EDT Gender Identity Not on file Sexual Orientation Not on file Job Start Date Occupation Industry Not on file Not on file Not on file Last Filed Vital Signs Vital Sign Reading Time Taken Comments Blood Pressure 165/80 06/24/2024 10:06 AM EDT Pulse 70 06/24/2024 10:06 AM EDT Temperature 36.8 C (98.3 F) 06/24/2024 9:28 AM EDT Respiratory Rate 18 10/02/2023 9:01 AM EST Oxygen Saturation 97% 06/24/2024 9:28 AM EDT Inhaled Oxygen Concentration - - Weight 85.5 kg (188 lb 9.6 oz) 06/24/2024 9:28 A M EDT Height 157.5 cm (5' 2 ) 06/24/2024 9:28 AM EDT Body Mass Index 34.5 06/24/2024 9:28 AM EDT Plan of Treatment Health Maintenance Due Date Last Done Comments Depression Screening 1957 BMI Counseling 1962 Preventative Health Evaluation 1962 Fall Risk Assessment 2009 Osteoporosis Screening (DEXA Scan) 2009 RSV Adult > 60+ Yrs or (1 - 1-dose 75+ series) 2019 DTap / Tdap / Td (2 - Td or Tdap) 09/11/2022 09/11/2012, 11/07/2004 COVID-19 Vaccine ( season) 2025 07/27/2023, 07/12/2022, 02/02/2022, Additional history exists Influenza Vaccine (#1) 2025 , 07/12/2022, 07/17/2021, Additional history exists Pneumococcal Vaccine Completed 06/28/2015, 12/16/19 10 Shingrix-Zoster Vaccine Completed 05/18/2020, 01/10 Hepatitis B Vaccines Aged Out No long er eligible based on patient's age to complete this topic RSV Ped < 20 months Aged Out No longe r eligible based on patient's age to complete this topic Care Teams Breaker Up Machine Operator Relationship Specialty Start Date End Date Seun Esparza DO [address] [place] [id number] PCP - General Family Medicine 07/12/22
--- OUTSIDE RECORDS SUMMARY | 2025-09-04 10:58 | XMS_ITS ---
Author Organization [facility] Address [address] [place] [address] Care Team Providers Care Cook Chef Name Role Phone Seun Esparza DO Primary Care Provider [phone] Active Problems Problem Noted Date Diagnosed Date [...] Inc TG, inc LDL Overweight 02/14/2011 06/24/2024 Current Oncology Plans No current plan information found. Past Plans ONCOLOGY TREATMENT Plan Name Start Date Discontinue Date Treatment Medications Discontinue Reason Plan Provider Cycles [facility] BCN OP TRASTUZUMAB (WITH LOAD), [id number], X1 YEAR (1.5/1 HR) 3/23/20 23 06/24/2024 albuterol (PROVENTIL)diphenhydr AMINE (BENADRYL)EPINEPHrine famotidine (PF) (PEPCID)hydrocortison e (SOLU-CORTEF) IVmeperidine (DEMEROL) 25 MG/MLSaline Flush 0.9 %sodium chloride (NS) 0.9 %sodium chloride 0.9% bolus (NS)trastuzumab-qyyp (TRAZIMERA) infusion Therapy Complete Samuel Meza MD 18 of 18 cycles started [facility] OP PACLITAXEL WEEKLY / TRASTUZUMAB WEEKLY (5 HRS) 022 01/17/2023 albuterol (PROVENTIL)dexamethas one (DECADRON)dexamethaso ne sod phosphate PF (DECADRON)diphenhydrA MINE (BENADRYL)EPINEPHrine famotidine (PEPCID)famotidine (PF) (PEPCID)hydrocortison e (SOLU-CORTEF) IVmeperidine (DEMEROL) 25 MG/MLondansetron (ZOFRAN-ODT)PACLitaxe l (TAXOL) chemo infusionSaline Flush 0.9 %sodium chloride (NS) 0.9 %sodium chloride 0.9% bolus (NS)trastuzumab-qyyp (TRAZIMERA) infusion Therapy Complete Samuel Meza MD 4 of 4 cycles started [facility] OP PACLITAXEL WEEKLY / TRASTUZUMAB WEEKLY (5 HRS) 022 10/11/2022 albuterol (PROVENTIL)dexamethas one (DECADRON)dexamethaso ne (DECADRON) DOSE > 10 mg IVPBdiphenhydrAMINE (BENADRYL)EPINEPHrine famotidine (PEPCID)famotidine (PF) (PEPCID)hydrocortison e (SOLU-CORTEF) IVmeperidine (DEMEROL) 25 MG/MLPACLitaxel (TAXOL) chemo infusionSaline Flush 0.9 %sodium chloride (NS) 0.9 %sodium chloride 0.9% bolus (NS)TRASTUZUMAB INFUSION Entered in error Samuel Meza MD Treatment not started Radiation Treatments * No radiation treatments are documented for this patient in [facility]. Treatments may have been administered in another system.
== END 2025-09-04 10:18 | disposition home or self-care (01) ==
LOC: HO.HMCFM 09:36
PROVIDERS: PCP Internal Medicine; Visit Provider Internal Medicine
DX: Z76.89 Persons encountering health services in other specified circumstances (principal); C50.919 Malignant neoplasm of unspecified site of unspecified female breast; E78.5 Hyperlipidemia, unspecified